=== PATIENT | female | born 1980 | race Two or more races ===

== ENCOUNTER 2016-04-21 21:25 | Emergency (ER) | payer OTHER ==
[~2016-04-21] VITALS: Ht 165.1 cm; Wt 90.0 kg
[2016-04-21 21:37] VITALS: BP 106/63
== END 2016-04-22 | disposition home or self-care (01) ==
LOC: ER 21:26
DX: T78.49XA Other allergy, initial encounter (principal); F17.210 Nicotine dependence, cigarettes, uncomplicated; Z88.0 Allergy status to penicillin; X58.XXXA Exposure to other specified factors, initial encounter
CPT/HCPCS: 99281